=== PATIENT | male | born 1985 | race Hispanic/Latino ===

== ENCOUNTER 2019-08-29 12:40 | Emergency (ER) | payer OTHER, SELFPAY ==
[2019-08-29 12:55] VITALS: BP 147/73; PULSE 66; RESP 16; TEMP 36.9; O2SAT 99
--- NOTE | 2019-08-29 13:13 | ED.NAVMDI ---
HPI - Nausea/Vomiting/Diarrhea General Chief complaint: Nausea/Vomiting/Diarrhea Stated complaint: diarrhea/abd pain Time Seen by Provider: 08/29/19 13:00 Source: patient and RN notes reviewed Mode of arrival: ambulatory Limitations: no limitations History of Present Illness HPI Narrative: Patient presents today complaining of diarrhea x2 days. States he frequently experiences diarrhea and gas after drinking milk or consuming dairy products. Similar symptoms occurred 2 weeks ago and lasted for a few days. Occasionally he feels uncomfortable in the left of the abdomen. He is concerned that there may be something going on in my body . He does not currently have a PCP. He has been taking Pepto, which provide some relief. MD elicited complaint: diarrhea Related Data Allergies Allergy/AdvReac Type Severity Reaction Status Date / Time No Known Allergies Allergy Unverified 11/26/16 10:43 Review of Systems Review of Systems: Narrative: CONSTITUTIONAL: Denies body aches, fever, chills, or sweats. EYES: Denies visual changes, redness, or discharge. ENT: Denies rhinorrhea, congestion, sore throat, or otalgia. CARDIOVASCULAR: Denies chest pain, palpitations, or edema. RESPIRATORY: Denies cough or dyspnea. GASTROINTESTINAL: Denies abdominal pain, nausea, vomiting. + Diarrhea GENITOURINARY: Denies dysuria or hematuria. SKIN: Denies rash, itching, or wounds. MUSCULOSKELETAL: Denies back pain, joint pain, or myalgia. NEUROLOGIC: Denies headache, numbness, tingling, or weakness. PSYCH: Denies depression or anxiety. PMFSH Social History Social History Smoking status: Never smoker Comments At time of signature, I have reviewed and agree with nursing past medical, surgical, social and family history unless otherwise noted. Please see nursing chart for further information. There is no relevant family history pertinent to the presenting complaint Exam Narrative: Exam Narrative: GENERAL: Well-appearing, well-nourished, and in no acute distress. HEAD: Normocephalic, atraumatic. EYES: EOMI. No redness or drainage. Conjunctivae normal. ENT: Mucous membranes pink and moist. Nares clear. NECK: Normal AROM. Supple. No lymphadenopathy. CHEST: No respiratory distress. Clear to auscultation. HEART: Regular rate and rhythm. No murmur appreciated. Normal peripheral pulses. ABDOMEN: Soft, nontender, nondistended, normal active bowel sounds.-CVAT MUSCULOSKELETAL: No bony tenderness. EXTREMITIES: Normal range of motion. No edema. SKIN: Warm, dry, no rash. NEURO: No focal deficits. Alert and oriented x3. Gait steady. PSYCH: Normal affect. No signs of depression or anxiety. Course Vital Signs Vital signs: Vital Signs Temperature 98.5 F 08/29/19 12:55 Pulse Rate 66 08/29/19 12:55 Respiratory Rate 16 08/29/19 12:55 Blood Pressure 147/73 H 08/29/19 12:55 Pulse Oximetry 99 08/29/19 12:55 Temperature 98.5 F 08/29/19 12:55 Pulse Rate 66 08/29/19 12:55 Respiratory Rate 16 08/29/19 12:55 Blood Pressure 147/73 H 08/29/19 12:55 Pulse Oximetry 99 08/29/19 12:55 Reviewed. Pt has been instructed to follow up with his PCP regarding his elevated blood pressure today. MDM - Nausea/Vomiting/Diarrhea Differential Diagnosis Differential diagnosis: Likely gastroenteritis and other (Lactose intolerance, food allergy, irritable bowel syndrome) Critical Care Time Critical Care Time Critical Care Time: No Discharge Plan Discharge Clinical Impression: Diarrhea Qualifiers: Diarrhea type: unspecified type Qualified Code(s): R19.7 - Diarrhea, unspecified Patient Disposition: Home, Self-Care Condition: Stable Instructions: Lactose-Controlled Diet (ED), Acute Diarrhea (ED) Additional Instructions: Seg?n la descripci?n de chico s?ntomas, es posible que tenga intolerancia a la lactosa o alergia a la lactosa o los productos l?cteos. Limite la cantidad de l?cteos que consume para mirta si esto hace marvin diferenci
== END 2019-08-29 13:21 | disposition home or self-care (01) ==
PROVIDERS: Emergency Provider Nurse Practitioner
DX: R19.7 Diarrhea, unspecified (principal)
CPT/HCPCS: 99211; G0463

== ENCOUNTER 2022-12-22 15:15 | Emergency (ER) | payer SELFPAY ==
[2022-12-22 15:23] VITALS: BP 150/95; PULSE 78; RESP 16; O2SAT 100
--- NOTE | 2022-12-22 15:51 | ED.WOUNDLAC ---
HPI - Wound/Laceration General Chief Complaint: Skin/Abscess/Foreign Body Stated Complaint: abscess Time Seen by Provider: 12/22/22 15:43 Source: patient and RN notes reviewed Mode of arrival: ambulatory Limitations: no limitations History of Present Illness HPI narrative: Patient presents today complaining of a 2 month history of intermittent cyst to his left upper back. States that started draining 1 week ago and got worse over the last couple days. Denies any current pain. States he has had history of 1 other abscess on 1 of his legs in the past. Related Data Allergies Allergy/AdvReac Type Severity Reaction Status Date / Time No Known Allergies Allergy Verified 12/22/22 15:26 Review of Systems Review of Systems: CONSTITUTIONAL: Denies body aches, fever, chills, or sweats. EYES: Denies visual changes, redness, or discharge. ENT: Denies rhinorrhea, congestion, sore throat, or otalgia. CARDIOVASCULAR: Denies chest pain, palpitations, or edema. RESPIRATORY: Denies cough or dyspnea. GASTROINTESTINAL: Denies abdominal pain, nausea, vomiting, or diarrhea. GENITOURINARY: Denies dysuria or hematuria. SKIN: + abscess MUSCULOSKELETAL: Denies back pain, joint pain, or myalgia. NEUROLOGIC: Denies headache, numbness, tingling, or weakness. PSYCH: Denies depression or anxiety. [facility] Social History Social History Smoking status: Never smoker Comments At time of signature, I have reviewed and agree with nursing past medical, surgical, social and family history unless otherwise noted. Please see nursing chart for further information. There is no relevant family history pertinent to the presenting complaint Exam Narrative: GENERAL: Well-appearing, well-nourished, and in no acute distress. HEAD: Normocephalic, atraumatic. EYES: EOMI. No redness or drainage. Conjunctivae normal. ENT: Mucous membranes pink and moist. NECK: Normal AROM. CHEST: No respiratory distress. SKIN: Warm, dry, no rash. Capillary refill normal. Normal skin turgor. Approximately 3 cm area of erythema with 2 cm open abscess that is draining purulent discharge. Culture obtained. NEURO: No focal deficits. Alert and oriented x3. Gait steady. PSYCH: Normal affect. No signs of depression or anxiety. Course Course Level of Care: Express Care Visit Vital Signs Vital signs: Vital Signs Pulse Rate 78 12/22/22 15:23 Respiratory Rate 16 12/22/22 15:23 Blood Pressure 150/95 H 12/22/22 15:23 Pulse Oximetry 100 12/22/22 15:23 Oxygen Delivery Room Air 12/22/22 15:23 Pulse Rate 78 12/22/22 15:23 Respiratory Rate 16 12/22/22 15:23 Blood Pressure 150/95 H 12/22/22 15:23 Pulse Oximetry 100 12/22/22 15:23 Oxygen Delivery Room Air 12/22/22 15:23 Reviewed. Pt has been instructed to follow up with his PCP regarding his elevated blood pressure today. MDM - Wound/Laceration MDM Narrative Medical decision making narrative: Wound culture obtained. Will place patient on Keflex. Anticipatory guidance given. Differential Diagnosis Differential diagnosis: Likely abscess and other (Cellulitis) Critical Care Time Critical Care Time Critical Care Time: No Discharge Plan Discharge Clinical Impression: Abscess of back Patient Disposition: Home, Self-Care Condition: Stable Instructions: Antibiotic Form, Abscess (ED) Additional Instructions: Your abscess is open and draining well. Keep clean with soap and water. Do not clean with alcohol or peroxide. Do not apply antibiotic ointment. Keep covered until dry and healing. Take the Keflex as prescribed until gone. Take Tylenol or ibuprofen for pain. Do not soak in standing water such as pools or hot tubs until healed. Follow-up with your PCP with any concerns. Your blood pressure was elevated above 120/80 today at Urgent Care. This puts you above the threshold for follow up. Please schedul
== END 2022-12-22 16:09 | disposition home or self-care (01) ==
PROVIDERS: Emergency Provider Nurse Practitioner; PCP Emergency Medicine
DX: L02.212 Cutaneous abscess of back [any part, except buttock and flank] (principal)
CPT/HCPCS: 87070; 87205; 99213; G0463

== ENCOUNTER 2024-09-29 15:09 | Emergency (ER) | payer SELFPAY ==
--- NOTE | 2024-09-29 15:10 | ED_ITS ---
HPI - General Adult General Chief complaint: Dizziness Stated complaint: High B/P Time Seen by Provider: 09/29/24 15:15 Source: patient, RN notes reviewed and old records reviewed Mode of arrival: ambulatory Limitations: no limitations History of Present Illness HPI narrative: 39-year-old male presents to the [facility] with concerns for elevated blood pressure. Patient has had to complaints of the last 3 weeks. Patient reports intermittent dizziness especially when he is going from a sitting to a standing position. Increased anxiety. States his jobs been getting very stressful. States that his blood pressure he does not feel like is under control. Patient also reports a feeling of a fullness sensation or something in his throat that he cannot clear. Patient denies any headaches. Denies fevers. No flu-like symptoms. Patient currently does not have a primary care provider, gave him a list for [facility], encouraging following up. Patient is sitting in exam room. Currently with no symptoms except for a fullness in his throat. Onset (ago): week(s) (3) Related Data Home Medications ?Medication ?Instructions ?Recorded ?Confirmed ?Last Taken ?Type No Home Medications 09/29/24 09/29/24 Unknown History Allergies Allergy/AdvReac Type Severity Reaction Status Date / Time No Known Allergies Allergy Verified 09/29/24 15:20 Review of Systems Review of Systems: All systems reviewed & are unremarkable except as noted in HPI and below Constitutional: Constitutional: Reports as per HPI ENT: Reports as per HPI Cardiovascular: Cardiovascular: Reports no additional cardiovascular complaints, Denies chest pain and Denies dyspnea Respiratory: Respiratory: Reports no additional respiratory complaints, Denies chest congestion, Denies cough and Denies dyspnea Musculoskeletal: Musculoskeletal: Reports no additional musculoskeletal complaints Integumentary/Breasts: Skin/Breast: Reports system reviewed and no additional complaints, except as docu PMFSH Social History Social History Smoking status: Never smoker Comments At the time of my signature, I reviewed and agree with the nursing past medical, surgical, social, and family history. There is no relevant family history pertinent to the patient complaint. Exam Const: General: cooperative, healthy appearing, comfortable, no acute distress, well developed, alert and well nourished Nutritional Appearance: well nourished Orientation/consciousness: patient oriented x3 Limitations: no limitations HENMT: Head: normal to inspection Ears: hearing grossly normal bilaterally, external ears normal, TM's normal bilaterally, EAC's normal, mastoids normal and no periauricular adenopathy Face/Nose/Sinus: Normal external nose present and Normal nasal mucous membranes and turbinates present Mouth: Yes Normal oral and palatal mucosa present, Yes lip normal, Yes tongue normal and Yes moist mucous membranes Throat: posterior oropharynx normal, tonsils normal, uvula midline and no uvular edema Eyes: General: appearance normal, both eyes and all related structures Alignment and Position: alignment normal Neck: Neck: normal visual inspection, full ROM, no lymphadenopathy and no meningeal signs Chest: Chest palpation & inspection: normal inspection of the chest Resp: Effort & Inspection: normal respiratory effort and able to speak in complete sentences Auscultation: clear to auscultation bilaterally, no crackles, no rales, no rhonchi and no wheezes Cardio: Rate: regular rate Skin: General skin exam: normal color and no rashes or lesions noted Neuro: General: patient oriented x3, gait normal, moves all extremities and no meningeal signs Cognition (Neuro): normal cognition Speech: normal speech Gait exam (Neuro): Normal gait present Motor exam (neuro): 5/5 motor strength present throughout, Pronator motor function not present and No tremor noted Extrem: General: normal to inspection, full ROM, capillary refill normal and normal gait Psych: Appearance: grossly normal and well kempt Mental Status: mental status grossly normal Speech and movement: Normal speech and movement present and Clear speech present Affect: normal affect Attitude: cooperative Course Course Level of Care: Express Care Visit Vital Signs Vital signs: Vital Signs Temperature 97.1 F L 09/29/24 15:13 Pulse Rate 72 09/29/24 15:13 Respiratory Rate 20 09/29/24 15:13 Blood Pressure 140/96 H 09/29/24 15:13 Pulse Oximetry 99 09/29/24 15:13 Oxygen Delivery Room Air 09/29/24 15:13 Temperature 97.1 F L 09/29/24 15:13 Pulse Rate 76 09/29/24 15:27 Respiratory Rate 20 09/29/24 15:13 Blood Pressure 121/78 09/29/24 15:27 Pulse Oximetry 99 09/29/24 15:13 Oxygen Delivery Room Air 09/29/24 15:13 Reviewed Medical Decision Making MDM Narrative Medical decision making narrative: Patient sitting in exam room. Patient is nontoxic, vitals are stable. Patient's exam benign, no acute findings which is reassuring. Patient is not having any on the dizzy episodes during orthostatics. Discussed in great detail signs and symptoms to proceed to the emergency room. Discussed that he really does need a primary care provider for further evaluation, testing and treatment which he verbalized understanding Discharge instructions reviewed with patient, as well as provided in writing per nursing staff. The instructions also include specific and strict return/GO TO THE ER as well as f/u information. All questions have been answered, and the patient deny any further questions with discharge and discharge plan. Some parts of this dictation were generated by voice recognition software and may contain typographical and/or grammatical inaccuracies. Differential Diagnosis Differential Diagnosis: Anxiety vertigo, ear disorders Medical Records Medical records reviewed: Yes I reviewed the external patient's medical records. Vital Signs Vital Signs: Vital Signs Temperature 97.1 F L 09/29/24 15:13 Pulse Rate 72 09/29/24 15:13 Respiratory Rate 20 09/29/24 15:13 Blood Pressure 140/96 H 09/29/24 15:13 Pulse Oximetry 99 09/29/24 15:13 Oxygen Delivery Room Air 09/29/24 15:13 Temperature 97.1 F L 09/29/24 15:13 Pulse Rate 76 09/29/24 15:27 Respiratory Rate 20 09/29/24 15:13 Blood Pressure 121/78 09/29/24 15:27 Pulse Oximetry 99 09/29/24 15:13 Oxygen Delivery Room Air 09/29/24 15:13 Reviewed Lab Data Lab results reviewed: Yes I reviewed the patient's lab results. Labs: Reviewed Critical Care Time Critical Care Time Critical Care Time: No Discharge Plan Discharge Clinical Impression: Dizziness, Anxiety Patient Disposition: Home Condition: Stable Instructions: Antibiotic Form, Dizziness (ED), Anxiety (ED) Additional Instructions: A list of primary care providers for [facility] has been given to you please. Please make an appointment. Today your blood pressure [id number]. This would be considered a borderline blood pressure and needs further monitoring from a primary care provider If chest pain, shortness of breath or severe dizziness returns please go directly to the nearest emergency room for further evaluation, testing and treatment Patient Language: Kiswahili Prescriptions: No Action No Home Medications Follow-up/Referrals: Basil Lopez MD [Primary Care Provider] - Stand Alone Forms: Work/School Release IP Time of Disposition: 15:32
[2024-09-29 15:13] VITALS: BP 140/96; PULSE 72; RESP 20; TEMP 36.2; O2SAT 99
[2024-09-29 15:22] VITALS: BP 116/70; PULSE 68
[2024-09-29 15:25] VITALS: BP 128/91; PULSE 72
[2024-09-29 15:27] VITALS: BP 121/78; PULSE 76
== END 2024-09-29 15:42 | disposition home or self-care (01) ==
PROVIDERS: Emergency Provider Nurse Practitioner; PCP Emergency Medicine
DX: F41.9 Anxiety disorder, unspecified (principal); R42 Dizziness and giddiness
CPT/HCPCS: 99212; G0463